=== PATIENT | female | born 1970 | race Caucasian/White ===

== ENCOUNTER 2020-08-25 18:53 | Emergency (ER) | payer MEDICAID, SELFPAY ==
[2020-08-25 18:55] VITALS: BP 162/101; PULSE 82; RESP 14; TEMP 36.3; O2SAT 99; BMI 27.9
--- NOTE | 2020-08-25 19:32 | EKG12_ITS ---
Test Reason : SUICIDAL Blood Pressure : / mmHG Vent. Rate : 073 BPM Atrial Rate : 073 BPM P-R Int : 134 ms QRS Dur : 074 ms QT Int : 384 ms P-R-T Axes : 064 076 050 degrees QTc Int : 423 ms Normal sinus rhythm with sinus arrhythmia Normal ECG Confirmed by RAFAEL CHAVIRA, SHAUNA ([id number]), newspaper photo editor RANDI MILLER ([id number]) on 08/28/2020 1:36:38 PM Referred By: BLUE Confirmed By:SHAUNA HALL MD
--- NOTE | 2020-08-25 19:33 | ED.RN ---
PT STATES RX'S ARE FILLED AT [facility].
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
--- NOTE | 2020-08-25 19:50 | ED.RN ---
NO OLD EKGS IN MUSE
[2020-08-25 20:00] VITALS: RESP 16
[2020-08-25 20:16] LABS: Absolute Lymphocyte Count 2.34 X10^3/uL (0.83-4.51); Absolute Neutrophil Count 2.9 X10^3/uL (2.0-7.7); Basophil# 0.06 X10^3/uL; Eosinophil# 0.13 X10^3/uL; Eosinophils% 2.2 % (0-5); Hematocrit 36.8 % (37-47); Lymphocyte # 2.34 X10^3/ul (0.83-4.51); Lymphocyte % 39.1 % (19-41); Mean Corp Hgb Conc 32.6 g/dL (32-36); Mean Corpuscular Hgb 28.5 pg (27.0-32.0); Mean Corpuscular Volume 87.4 fL (81-99); Mean Platelet Vol. 9.8 fl (6.2-12.0); Monocyte# 0.49 X10^3/uL; Monocyte% 8.2 % (0-10); NRBC Flagged by Analyzer 0 % (0-5); Neutrophil # 2.94 X10^3/uL (2.7-7.7); Neutrophil % 49.2 % (47-70); Platelet Count 282 K/mm3 (150-450); RBC Distribution Width CV 12.9 % (11.6-14.6); RBC Distribution Width SD 41.2 fl (35.1-43.9); Red Blood Count 4.21 M/mm3 (4.2-5.4)
[2020-08-25 20:30] LABS: Internal QC Validated? YES +Cl - CLEAR BKGD; Pregnancy, Serum, hCG Quali. NEGATIVE Negative
[2020-08-25 20:31] LABS: Alcohol, Blood (Medical)-Serum < 3.0 mg/dL
[2020-08-25 20:37] LABS: ALB/GLOB Ratio 1.1 RATIO (0.9-2.4); AST(SGOT) 21 U/L (15-37); Alanine Aminotransfer ALT/SGPT 24 U/L (13-56); Albumin, Serum 3.9 g/dL (3.2-5.0); Alkaline Phosphatase 75 U/L (45-117); Anion Gap 5 (5-15); BUN 9 mg/dL (7-18); BUN/Creat Ratio 11.2 RATIO (10-20); Calcium,Total 9.4 mg/dL (8.5-10.1); Chloride 108 mmol/L (98-107); Creatinine, Serum 0.81 mg/dL (0.55-1.02); EST Glomerular Filtration Rate 79 mL/min (>60); Est Glom Filt Rate - Afr Amer 96 mL/min (>60); Estimated Creatinine Clearance 64.99 ml/min; Globulin 3.5 g/dL (2.2-4.2); Glucose 84 mg/dL (74-106); Potassium 3.6 mmol/L (3.5-5.1); Protein, Total 7.4 g/dL (6.4-8.2); Sodium Level 139 mmol/L (136-145)
[2020-08-25 20:52] LABS: Amphetamine Urine VISTA NEGATIVE (<1000 ng/mL); Barbiturate Urine VISTA NEGATIVE (< 200 ng/mL); Benzodiazepine Urine VISTA NEGATIVE (< 200 ng/mL); Cocaine Urine VISTA NEGATIVE (< 300 ng/mL); Ecstacy Urine VISTA NEGATIVE (< 500 ng/mL); Methadone Urine VISTA NEGATIVE (< 300 ng/mL); PCP Urine VISTA NEGATIVE (< 25 ng/mL); THC Urine VISTA POSITIVE (< 50 ng/mL); Vista UDS pH Range 5
[2020-08-25 21:00] VITALS: RESP 18
--- NOTE | 2020-08-25 21:08 | CM.ED ---
SOCIAL WORK Referral Source: Dr. Jeronimo Patient presents with suicidal ideation. Patient is self-pay. Patient medically cleared. Call to Crisis, spoke with Ofelia. Chart faxed to Crisis. Crisis to be over to assess patient. Silvio Skelton, TRANSPORTATION MAINTENANCE OPERATOR, [place]
[2020-08-25] MEDS: Acetaminophen 500 MG Tablet 1000 MG PO (21:37)
[2020-08-25 22:00] VITALS: RESP 18
--- NOTE | 2020-08-25 22:13 | ED.RN ---
CRISIS ON SITE AT THE BEDSIDE
[2020-08-25 23:40] VITALS: BP 139/84; PULSE 72; RESP 18; O2SAT 98
== END 2020-08-25 23:44 | disposition home or self-care (01) ==
PROVIDERS: Emergency Provider Emergency Medicine
DX: R45.851 Suicidal ideations (principal); F41.9 Anxiety disorder, unspecified; F32.9 Major depressive disorder, single episode, unspecified; Z79.899 Other long term (current) drug therapy
CPT/HCPCS: 80053; 80307; 82077; 84703; 85025; 87426; 93005; 99285; J7040